=== PATIENT | female | born 1960 | race Two or more races ===

== ENCOUNTER 2025-01-22 21:09 | Emergency (ER) | payer OTHER ==
[~2025-01-22] VITALS: Ht 170.2 cm; Wt 77.1 kg
[2025-01-22] MEDS ORDERED: PROSCAR5 MG PO (21:17)
[2025-01-22] MEDS ORDERED: LOSARTAN POTASS50 MG PO (21:17)
[2025-01-22 22:24] LABS: BASO % 0.8 % (0.1-1.2); EOS # 0.08 (0.04-0.54); EOS % 1.3 % (0.7-7.0); LYMPH # 1.25 (1.18-3.74); LYMPH % 19.8 % (19.3-53.1); MEAN PLATELET VOLUME 9.20 fl (9.4-12.4); MONO # 0.44 (0.24-0.82); MONO % 7.0 % (4.7-12.5); NEUT # 4.47 (1.56-6.13); NEUT % 70.9 % (34.0-71.1); RED CELL DISTRIBUTION WIDTH 12.3 % (11.6-14.4)
[2025-01-22 22:32] LABS: ALT/SGPT 22.0 U/L (12-78); AST/SGOT 25.0 U/L (15-37); BILIRUBIN TOTAL 0.48 mg/dL (0.3-1.2); BUN CREA RATIO 28.0 (7.0-25.0); CREATININE SERUM 1.05 mg/dL (0.55-1.02); GFR 52.43; GLOBULINA 2.8 G/DL (2.4-3.5); GLUCOSE FASTING 130.0 mg/dL (65-100); LDH 185.0 U/L (84-246); OSMOLALITY SERUM 283.0 MOSM/KG (275-295); PHOSPHOKINASE CREATININE 133.0 U/L (26-192)
[2025-01-22] MEDS ORDERED: LIDOCAINE HCL 1% 10ML VIAL ONE (22:50)
== END 2025-01-22 23:49 | disposition home or self-care (01) ==
LOC: ER 21:09
PROVIDERS: General Practice
DX: S01.81XA Laceration without foreign body of other part of head, initial encounter (principal); W19.XXXA Unspecified fall, initial encounter; Y93.89 Activity, other specified; Y92.89 Other specified places as the place of occurrence of the external cause; Y99.8 Other external cause status; R55 Syncope and collapse; I10 Essential (primary) hypertension